=== PATIENT | male | born 1950 | race Caucasian/White ===

== ENCOUNTER 2023-09-03 13:36 | Emergency (ER) | payer OTHER, MEDICARE ==
[~2023-09-03] VITALS: Ht 175.3 cm; Wt 79.4 kg
[~2023-09-03 13:36] MED LIST: HYDR-3917 PO; NAPR-688 PO
[2023-09-03 13:45] VITALS: BP_SYST 119; PULSE 100; RESP 17; TEMP 97.4; O2SAT 96
[2023-09-03 14:40] VITALS: BP_SYST 134; PULSE 100; RESP 17; TEMP 97.4; O2SAT 96
[2023-09-03 14:45] LABS: BASOPHILS # (AUTO) 0.1 K/uL (0.0-0.2); BASOPHILS % (AUTO) 0.6 % (0.0-2.0); EOSINOPHILS # (AUTO) 0.2 K/uL (0.0-0.4); EOSINOPHILS % (AUTO) 1.6 % (0.0-4.0); HEMATOCRIT 43.8 % (36-54); HEMOGLOBIN 14.8 g/dL (14.0-18.0); LYMPHOCYTES # (AUTO) 1.1 K/uL (1.0-5.5); LYMPHOCYTES % (AUTO) 10.5 % (20.5-51.5); MEAN CORPUSCULAR HEMOGLOBIN 31 pg (27-31); MEAN CORPUSCULAR HGB CONC 34 % (32-36); MEAN CORPUSCULAR VOLUME 91 fL (79.0-98.0); MONOCYTES # (AUTO) 1.2 K/uL (0.0-1.0); MONOCYTES % (AUTO) 11.5 % (1.7-9.3); NEUTROPHILS % (AUTO) 75.8 % (40.0-70.0); PLATELET COUNT (AUTO) 410 K/uL (130-430); RED BLOOD CELL COUNT(AUTO) 4.81 MIL/uL (4.2-6.2); RED CELL DISTRIBUTION WIDTH 14.3 % (9.0-15.0); WHITE BLOOD COUNT (AUTO) 10.5 K/uL (4.8-10.8)
[2023-09-03 15:36] LABS: ANION GAP 8 (5-15); CALCIUM 9.7 mg/dL (8.4-11.0); CARBON DIOXIDE 29 mmol/L (23-29); CHLORIDE 98 mmol/L (98-107); CREATININE 1.64 mg/dL (0.55-1.30); GLUCOSE 103 mg/dL (74-106); POTASSIUM 4.2 mmol/L (3.5-5.1); SODIUM SERUM 135 mmol/L (136-145); UREA NITROGEN, BLOOD 40 mg/dL (8-21)
[2023-09-03 15:39] LABS: PROTHROMBIN TIME 10.5 SECS (9.5-12.5)
[2023-09-03] MEDS: NACL 0.9% 1,000 ML IV ONE (16:24)
== END 2023-09-03 18:00 | disposition home or self-care (01) ==
LOC: SED 13:36
DX: R06.02 Shortness of breath (principal); R07.9 Chest pain, unspecified; R22.43 Localized swelling, mass and lump, lower limb, bilateral; I10 Essential (primary) hypertension
CPT/HCPCS: 99285; 93970; 96360; 71275; 71045; 80048; 83880; 85025; 85379; 85610; 85730; 84484; 36415; 93005; J7030